=== PATIENT | male | born 1960 | race Caucasian/White ===

== ENCOUNTER 2018-09-01 11:45 | Emergency (ER) | payer MEDICAID ==
[~2018-09-01] VITALS: Ht 172.7 cm; Wt 64.9 kg
[2018-09-01 12:14] LABS: EOSINOPHILS % 2.7 % (0.0-5.0); HEMATOCRIT. 42.5 % (42.0-52.0); LYMPHOCYTES % 25.7 % (20.0-50.0); MEAN CORPUSCULAR HEMOGLOBIN 29.6 pg (28.0-32.0); MEAN CORPUSCULAR VOLUME 89.5 fL (80.0-94.0); MEAN PLATELET VOLUME 7.5 fl (7.4-10.4); MONOCYTES % 7.9 % (2.0-8.0); NEUTROPHILS % 62.7 % (40.0-76.0); PLATELET 241 x1000/uL (130-400); RED BLOOD CELL COUNT 4.75 mill/uL (4.7-6.1); RED CELL DISTRIBUTION WIDTH 13.3 % (11.6-14.6)
[2018-09-01 12:20] LABS: CHLORIDE 99 mEq/L (98-107)
[2018-09-01 12:22] LABS: PROTHROMBIN TIME 9.9 sec (9.1-11.1)
[2018-09-01 12:24] LABS: ETHANOL BLOOD < 10 mg/dL
[2018-09-01 12:27] LABS: LDL CHOLESTEROL 75 mg/dL (5-100)
[2018-09-01] MEDS ORDERED: ALTEPLASE 100MG/VIAL IV STA (12:31)
[2018-09-01] MEDS ORDERED: ALTEPLASE IV STA (12:31)
[2018-09-01 13:23] LABS: CLARITY URINE CLEAR (CLEAR); COLOR URINE YELLOW (YELLOW); KETONES URINE NEGATIVE (NEGATIVE); LEUKOCYTE ESTERASE URINE NEGATIVE (NEGATIVE); NITRITE URINE NEGATIVE (NEGATIVE); OCCULT BLOOD URINE NEGATIVE (NEGATIVE); PROTEIN URINE NEGATIVE (NEGATIVE); SPECIFIC GRAVITY URINE 1.006 (1.005-1.030); UROBILINOGEN URINE 0.2 E.U./dL (0.2-1.0)
[2018-09-01 13:44] VITALS: BP 118/81
[2018-09-01 15:16] LABS: *AMPHETAMINES SCREEN URINE NEGATIVE (NEGATIVE); *BARBITURATES SCREEN URINE NEGATIVE (NEGATIVE); *BENZODIAZEPINES SCREEN URINE NEGATIVE (NEGATIVE); *COCAINE SCREEN URINE PRESUMTIVE POSITIVE (NEGATIVE); METHADONE URINE SCREEN PRESUMTIVE POSITIVE (NEGATIVE); OPIATES URINE SCREEN PRESUMTIVE POSITIVE (NEGATIVE)
[2018-09-01 15:17] LABS: CANNABINOID URINE SCREEN NEGATIVE (NEGATIVE); PHENCYCLIDINE URINE SCREEN NEGATIVE (NEGATIVE)
== END 2018-09-01 13:52 | disposition short-term general hospital (02) ==
LOC: ER 11:45 → CANBEDREQ 14:58
DX: I63.9 Cerebral infarction, unspecified (principal); F11.10 Opioid abuse, uncomplicated
CPT/HCPCS: 36415; 37195; 70450; 71045; 80053; 80305; 81003; 82962; 83721; 84484; 85025; 85610; 93005; 99291; G0482; J2997